=== PATIENT | female | born 1960 | race Caucasian/White ===

== ENCOUNTER 2018-06-14 16:21 | Emergency (ER) | payer SELFPAY ==
[~2018-06-14] VITALS: Ht 162.6 cm; Wt 72.6 kg
[2018-06-14 16:23] VITALS: BP 123/69
--- NOTE | 2018-06-14 16:25 | NUR ---
58 Y F BIBA FOUND SLEEPING ON SIDEAWALK, PT BIBA FOR ALOC, UNABLE TO ANSWER QUESTIONS APPROPRIATELY, PT DOES NOT KNOW LOCATION, STATES SHE IS IN [place], [id number], REFUSED GLUCOSE CHECK IN FIELD AND UPON TRIAGE. NO COMPLAINTS AT THIS TIME, DENIES PAIN. SPEECH IS CLEAR. PT IS ALERT. PT NOTED WITH POOR HYGIENE, CALM, REPORTS HOMELESS. PT PLACED ON MONITOR. PT IN GOWN. BED IS DOWN, LOCKED, BED RAIL X 1, ERMD NOTIFIED. HX DENIES
--- NOTE | 2018-06-14 16:45 | NUR ---
dr medina at bedside
--- NOTE | 2018-06-14 17:04 | NUR ---
PT IS REFUSING LAB TO DRAW BLOOD AND IV START
[2018-06-14 17:16] LABS: APPEARANCE,URINE CLEAR (CLEAR); BILIRUBIN,URINE NEGATIVE (NEGATIVE); BLOOD, URINE TRACE-I (NEGATIVE); COLOR,URINE YELLOW (YELLOW); LEUKOCYTE ESTERASE ,URINE NEGATIVE (NEGATIVE); NITRITE, URINE NEGATIVE (NEGATIVE); UGLUCOSE NEGATIVE (NEGATIVE)
[2018-06-14 17:17] LABS: BARBITURATE, URINE NEG. ng/ml (NEG <=200); BENZODIAZEPINE, URINE NEG. ng/mL (NEG <=200); CANNABINOID, URINE NEG. ng/mL (NEG <=50); COCAINE, URINE NEG. ng/mL (NEG <=300); OPIATE, URINE NEG. ng/mL (NEG <=2000); PHENCYCLIDINE SCREEN,URINE NEG. ng/mL (NEG <=25)
[2018-06-14 17:33] LABS: RBC,URINE 0-5 /HPF (0-5); WBC,URINE 0-5 /HPF (0-5)
[2018-06-14 17:45] VITALS: BP 121/70
--- NOTE | 2018-06-14 17:45 | NUR ---
Patient discharged with v/s stable. Written and verbal after care instructions given and explained. Patient verbalized understanding. Ambulatory with steady gait. All questions addressed prior to discharge. Advised to follow up with PMD.
--- NOTE | 2018-06-14 17:45 | NUR ---
pt being sent home with resource packet for shelters, lunch, and hygiene packet.
== END 2018-06-14 17:45 | disposition home or self-care (01) ==
LOC: MED 16:21
DX: Z72.89 Other problems related to lifestyle (principal); R94.31 Abnormal electrocardiogram [ECG] [EKG]; F12.90 Cannabis use, unspecified, uncomplicated; Z59.0 Homelessness
CPT/HCPCS: 80305; 81001; 81025; 93005; 99284

== ENCOUNTER 2022-09-15 10:32 | Emergency (ER) | payer MEDICAID ==
[~2022-09-15] VITALS: Ht 167.6 cm; Wt 59.0 kg
[2022-09-15 10:36] VITALS: BP 116/56; PULSE 76; RESP 18; TEMP 96.7; O2SAT 96
--- NOTE | 2022-09-15 10:39 | NUR ---
KALIE, [facility] BIB PATIENT TO ER BED 12
[2022-09-15] MEDS ORDERED: FAMOTIDINE 20 MG TAB PO ONE (11:35)
--- NOTE | 2022-09-15 12:07 | NUR ---
62 Y/O FEMALE BIBA, HOMELESS, PATIENT PRESENTS TO ED WITH ABDOMINAL PAIN SINCE LAST NIGHT. PT STATES IT MAY BE IN RELATION TO EATING [employer]K FOOD, STATES HE HAS BEEN EATING [employer] CONSISTENTLY; STATES SHE IS CURRENTLY HUNGRY AT THIS TIME. SKIN IS PINK/WARM/DRY; AAOX4 WITH EVEN AND STEADY GAIT; LUNGS CLEAR BL; HR EVEN AND REGULAR; PT DENIES ANY FEVER, CP, SOB, OR COUGH AT THIS TIME; PATIENT STATES PAIN OF 7/10 AT THIS TIME; PATIENT POSITIONED FOR COMFORT; HOB ELEVATED; BEDRAILS UP X2; BED DOWN. ER MD MADE AWARE OF PT STATUS. PMH: DENIES NKA
[2022-09-15 12:14] LABS: BASOPHILS % (AUTO) 0.7 % (0.0-2.0); EOSINOPHILS % (AUTO) 1.3 % (0.0-4.0); HEMATOCRIT 35.8 % (36-48); HEMOGLOBIN 12.1 g/dL (12.0-16.0); LYMPHOCYTES # (AUTO) 1.7 K/uL (2.5-16.5); LYMPHOCYTES % (AUTO) 45.3 % (20.5-51.1); MEAN CORPUSCULAR HEMOGLOBIN 31 pg (27-31); MEAN CORPUSCULAR HGB CONC 34 g/dL (33-37); MEAN CORPUSCULAR VOLUME 92.7 fL (80-94); MONOCYTES # (AUTO) 0.3 K/uL (0.8-1.0); MONOCYTES % (AUTO) 8.3 % (1.7-9.3); NEUTROPHILS # (AUTO) 1.7 K/uL (1.8-7.7); NEUTROPHILS % (AUTO) 44.4 % (42.2-75.2); PLATELET COUNT (AUTO) 185 K/uL (140-450); RED BLOOD CELL COUNT(AUTO) 3.87 MIL/uL (4.20-5.40); RED CELL DISTRIBUTION WIDTH 13.7 % (11.6-13.7); WHITE BLOOD COUNT (AUTO) 3.8 K/uL (4.8-10.8)
--- NOTE | 2022-09-15 12:44 | NUR ---
Patient appears to be resting comfortably in bed. Vital Signs within normal limits. Respirations even and unlabored.
[2022-09-15 12:49] LABS: ANION GAP 8.1 (8-16); ASPARTATE AMINOTRANSFERASE 26 U/L (15-37); CARBON DIOXIDE 31.5 mmol/L (21-32); CHLORIDE 107 mmol/L (98-107); CREATININE 0.6 mg/dL (0.6-1.3); GFR ARICAN-AMERICAN 131 mL/min (>90); GLUCOSE 111 mg/dL (74-106); POTASSIUM 3.6 mmol/L (3.5-5.1); SODIUM SERUM 143 mmol/L (136-145); TOTAL BILIRUBIN 0.2 mg/dL (0.0-1.0); UREA NITROGEN, BLOOD 14 mg/dL (7-18)
[2022-09-15 13:47] VITALS: BP 132/69; PULSE 76; RESP 20; TEMP 96.7; O2SAT 96
--- NOTE | 2022-09-15 13:47 | NUR ---
Patient discharged with v/s stable. coordinator of library services contacted, patient homeless. CM intructed to give resouce packet. Patient given resource packet with explanation.Written and verbal after care instructions given and explained. Patient verbalized understanding. Ambulatory with steady gait. Patient requested to use restroom, urinated in the lobby. Patient given dry socks, disposible scrubs, top and bottom. All questions addressed prior to discharge. Advised to follow up with PMD.
== END 2022-09-15 13:47 | disposition home or self-care (01) ==
LOC: MED 10:32
DX: R10.9 Unspecified abdominal pain (principal); F12.90 Cannabis use, unspecified, uncomplicated; Z72.89 Other problems related to lifestyle; Z79.899 Other long term (current) drug therapy
CPT/HCPCS: 36415; 80053; 84484; 85025; 93005; 99284

== ENCOUNTER 2022-09-16 11:49 | Emergency (ER) | payer MEDICAID ==
[~2022-09-16] VITALS: Ht 162.6 cm; Wt 68.0 kg
--- NOTE | 2022-09-16 12:07 | NUR ---
MD SENIOR AT BEDSIDE FOR EVALUATION
[2022-09-16 12:12] VITALS: BP 145/79; PULSE 81; RESP 18; TEMP 98; O2SAT 97
[2022-09-16 12:27] VITALS: O2SAT 97
--- NOTE | 2022-09-16 12:30 | NUR ---
pt provided w/ sandwich and juice per MD request.
== END 2022-09-16 14:03 | disposition home or self-care (01) ==
LOC: MED 11:49
DX: F17.290 Nicotine dependence, other tobacco product, uncomplicated (principal); R41.82 Altered mental status, unspecified; Z88.0 Allergy status to penicillin; Z79.899 Other long term (current) drug therapy
CPT/HCPCS: 99283